=== PATIENT | male | born 1950 | race Hispanic/Latino ===

== ENCOUNTER 2022-02-15 15:09 | Outpatient (CLI) | payer OTHER, MEDICARE ==
[2022-02-15 16:00] LABS: #Basophils 0.1 10x3/uL (0.0-0.2); #Eosinphils 0.4 10x3/uL (0.0-0.5); #Monocytes 0.6 10x3/uL (0.0-1.1); #Neutrophils 4.9 10x3/uL (1.5-8.4); %Basophils 0.6 % (0.0-2.0); %Eosinophils 4.3 % (0.0-6.0); %Monocytes 7.5 % (0.0-10.0); %Neutrophils 60.2 % (40.0-75.0); Anion Gap 14 mmol/L (10-20); BUN (Urea Nitrogen) 21 mg/dL (8.4-25.7); Calc. Creatinine Clearance 0 mL/min (70-130); Calcium 9.3 mg/dL (7.8-10.44); Carbon Dioxide 23 mmol/L (23-31); Chloride 107 mmol/L (98-107); Estimated GFR 65; Glucose 97 mg/dL (83-110); Hemoglobin 15.1 g/dL (13.5-17.5); Mean Corpuscular HGB CONC 34.4 g/dL (32.0-36.0); Mean Corpuscular Hemoglobin 30.9 pg (27.0-33.0); Mean Corpuscular Volume 89.8 fl (81.2-95.1); Mean Platelet Volume 9.4 fl (7.4-10.4); Platelet Count 247 10x3/uL (150-450); Potassium 4.5 mmol/L (3.5-5.1); RBC Distribution Width 12.7 % (11.5-14.5); Red Blood Cell (RBC) Count 4.89 10x6/uL (4.32-5.72); Sodium 139 mmol/L (136-145); White Blood Cell (WBC) Count 8.1 10x3/uL (3.5-10.5)
== END 2022-02-15 15:10 | disposition home or self-care (01) ==
LOC: LABBT 15:09
PROVIDERS: ATTEND Surgery
DX: Z01.818 Encounter for other preprocedural examination (principal); R22.2 Localized swelling, mass and lump, trunk
CPT/HCPCS: 80048; 85025; 93005; 93010

== ENCOUNTER 2022-02-17 06:50 | Day surgery (SDC) | payer OTHER ==
[2022-02-16 12:47] VITALS: BMI 28.8
[2022-02-17] MEDS ORDERED: Acetaminophen 500 MG TAB ONE (07:25)
[2022-02-17] MEDS ORDERED: CEFAZOLIN 2 GM VIAL ONE (09:23)
[2022-02-17] MEDS ORDERED: Sodium Chloride 0.9% 100 ML ONE (09:23)
[2022-02-17] MEDS ORDERED: fentaNYL PF 100 MCG/2 ML SYRINGE ONE (09:24)
[2022-02-17] MEDS ORDERED: ePHEDrine 50 MG/ML VIAL ONE (09:36)
[2022-02-17] MEDS ORDERED: Ondansetron PF 4 MG/2 ML Vial ONE (09:36)
[2022-02-17] MEDS ORDERED: Lidocaine 1% PF 5 ML VIAL ONE (09:36)
[2022-02-17] MEDS ORDERED: PROPOFOL 200 MG/20 ML VIAL ONE (09:36)
[2022-02-17] MEDS ORDERED: Dexamethasone 20 MG/5 ML VIAL ONE (09:36)
[2022-02-17] MEDS ORDERED: Rocuronium Bromide 10 MG/ML (10ML VIAL) ONE (09:36)
[2022-02-17] MEDS ORDERED: Bupivacaine/Epinephrine 0.25% 30 ML VIAL ONE (09:46)
[2022-02-17] MEDS ORDERED: Bacitracin Zinc Ointment 30 gm TUBE ONE (09:46)
[2022-02-17] MEDS ORDERED: Morphine 2 MG/ML VIAL ONE (12:50)
[2022-02-17] MEDS ORDERED: HYDROcodone/Acetaminophen 5/325 mg Tablet ONE (13:10)
== END 2022-02-17 14:54 | disposition home or self-care (01) ==
LOC: SDC 06:50
PROVIDERS: ATTEND Surgery
PROC: 0JB70ZZ Excision of Back Subcutaneous Tissue and Fascia, Open Approach (ICD-10-PCS; principal; 2022-02-17)
PROC: 0JB70ZZ Excision of Back Subcutaneous Tissue and Fascia, Open Approach (ICD-10-PCS; 2022-02-17)
DX: D17.1 Benign lipomatous neoplasm of skin and subcutaneous tissue of trunk (principal); I10 Essential (primary) hypertension; Z79.899 Other long term (current) drug therapy
CPT/HCPCS: 21931; 21933; J2272; 88304; J1100; J2405; J2704; J3490

== ENCOUNTER 2022-05-01 11:28 | Outpatient (CLI) | payer OTHER ==
[2022-05-01 12:39] LABS: #Basophils 0.1 10x3/uL (0.0-0.2); #Eosinphils 0.3 10x3/uL (0.0-0.5); #Monocytes 0.6 10x3/uL (0.0-1.1); #Neutrophils 7.7 10x3/uL (1.5-8.4); %Basophils 0.5 % (0.0-2.0); %Eosinophils 2.6 % (0.0-6.0); %Lymphocytes 17.5 % (18.0-47.0); %Monocytes 6.1 % (0.0-10.0); %Neutrophils 72.9 % (40.0-75.0); Hemoglobin 14.3 g/dL (13.5-17.5); Mean Corpuscular Hemoglobin 30.6 pg (27.0-33.0); Mean Corpuscular Volume 89.7 fl (81.2-95.1); Mean Platelet Volume 9.2 fl (7.4-10.4); Platelet Count 337 10x3/uL (150-450); RBC Distribution Width 12.7 % (11.5-14.5); Red Blood Cell (RBC) Count 4.68 10x6/uL (4.32-5.72); White Blood Cell (WBC) Count 10.5 10x3/uL (3.5-10.5)
[2022-05-01 13:34] LABS: Anion Gap 16 mmol/L (10-20); BUN (Urea Nitrogen) 22 mg/dL (8.4-25.7); Calc. Creatinine Clearance 0 mL/min (70-130); Calcium 9.3 mg/dL (7.8-10.44); Carbon Dioxide 24 mmol/L (23-31); Chloride 102 mmol/L (98-107); Estimated GFR 63; Glucose 139 mg/dL (83-110); Potassium 4.1 mmol/L (3.5-5.1); Sodium 138 mmol/L (136-145)
== END 2022-05-01 11:29 | disposition home or self-care (01) ==
LOC: LABBT 11:28
PROVIDERS: ATTEND Specialist
DX: Z01.812 Encounter for preprocedural laboratory examination (principal)
CPT/HCPCS: 80048; 85025

== ENCOUNTER 2022-05-02 09:42 | Day surgery (SDC) | payer OTHER ==
[2022-05-01 12:50] VITALS: BMI 28.3
[2022-05-02] MEDS ORDERED: Acetaminophen 500 MG TAB ONE (10:43)
[2022-05-02] MEDS ORDERED: Ketorolac Tromethamine 30 MG/ML VIAL ONE (10:43)
[2022-05-02] MEDS ORDERED: SUGAMMADEX SODIUM 200 MG/2 ML VIAL ONE (13:47)
[2022-05-02] MEDS ORDERED: Fentanyl 250 MCG/5 ML VIAL ONE (13:47)
[2022-05-02] MEDS ORDERED: CEFAZOLIN 2 GM VIAL ONE (13:55)
[2022-05-02] MEDS ORDERED: Sodium Chloride 0.9% 100 ML ONE (13:55)
[2022-05-02] MEDS ORDERED: Dexamethasone 20 MG/5 ML VIAL ONE (13:56)
[2022-05-02] MEDS ORDERED: PROPOFOL 200 MG/20 ML VIAL ONE (13:56)
[2022-05-02] MEDS ORDERED: Lidocaine 1% PF 5 ML VIAL ONE (13:56)
[2022-05-02] MEDS ORDERED: ePHEDrine 50 MG/ML VIAL ONE (13:56)
[2022-05-02] MEDS ORDERED: Rocuronium Bromide 10 MG/ML (10ML VIAL) ONE (13:56)
[2022-05-02] MEDS ORDERED: Ondansetron PF 4 MG/2 ML Vial ONE (13:56)
== END 2022-05-02 16:55 | disposition home or self-care (01) ==
LOC: SDC 09:42
PROVIDERS: ATTEND Specialist
PROC: 0KBG0ZZ Excision of Left Trunk Muscle, Open Approach (ICD-10-PCS; principal; 2022-05-02)
DX: M96.842 Postprocedural seroma of a musculoskeletal structure following a musculoskeletal system procedure (principal); I10 Essential (primary) hypertension; Z79.899 Other long term (current) drug therapy
CPT/HCPCS: 87070; 87077; 87186; 87205; J1100; J1885; J2405; J2704; J3010; J3490